=== PATIENT | female | born 1960 | race Caucasian/White ===

== ENCOUNTER → 2019-02-08 08:24 | Outpatient (CLI) | payer OTHER, SELFPAY ==
--- NOTE | 2019-02-08 | DI.US.S_ITS ---
PROCEDURE: US PELVIC COMPLETE INDICATIONS: PELVIC AND PERONEAL PAIN TECHNIQUE: Real-time scanning was performed of the pelvic organs, with image documentation. Additional endovaginal scanning was necessary due to incomplete visualization of the adnexal and endometrial structures by transabdominal scanning. COMPARISON: None. FINDINGS: Transabdominal scanning: Limited scanning through the kidneys shows no hydronephrosis. No pathologic free abdominal or pelvic fluid. Endovaginal scanning: Uterus: Uterus is normal in size at 8.0 x 4.8 x 5.6 cm. The endometrium measures 9 mm in combined thickness. Right anterior subserosal fibroid measuring 4.1 x 3.1 x 3.4 cm. Anterior subserosal fibroid measuring 1.7 x 1.3 x 1.1 cm Complex heterogeneous cervical mass, with internal vascularity measuring 2.5 x 1.7 x 2.0 cm. Ovaries: Ovaries are not well-visualized. IMPRESSION: Heterogeneous mass in the region of the cervix measuring up to 2.5 cm, nonspecific however concerning for cervical carcinoma. Recommend correlation with clinical exam findings. And if necessary, further evaluation with dedicated pelvis MRI could be performed. Multiple uterine fibroids Dictated by: Reginaldo Cisneros M.D. on 02/08/2019 at 12:17 Approved by: Reginaldo Cisneros M.D. on 02/08/2019 at 17:08
== END ==
PROVIDERS: Family Provider Family Medicine; PCP Family Medicine; Visit Provider Obstetrics & Gynecology
DX: R10.2 Pelvic and perineal pain (principal); D25.2 Subserosal leiomyoma of uterus; N88.9 Noninflammatory disorder of cervix uteri, unspecified
CPT/HCPCS: 76830; 76856

== ENCOUNTER → 2019-07-19 08:57 | Outpatient (CLI) | payer BC, SELFPAY ==
[2019-07-19 10:15] LABS: Add Manual Diff / Slide Review NO; Basophils Absolute Auto 0 /uL (0-100); Basophils Percent Auto 0.6 % (0-2); Eosinophils Absolute Auto 100 /uL (0-450); Eosinophils Percent Auto 2.9 % (2-4); Hematocrit 39.3 % (36-46); Hemoglobin 13.4 g/dL (12.0-16.0); Lymphocytes Absolute Auto 1300 /uL (1100-4500); Lymphocytes Percent Auto 28.9 % (25-40); Mean Corpuscular Hemoglobin 28.4 PG (26-34); Mean Corpuscular Volume 83.7 fL (80-100); Monocytes Absolute Auto 300 /uL (0-900); Monocytes Percent Auto 7.6 % (3-14); Neutrophils Absolute Auto 2700 /uL (1500-7000); Platelet Count 183 X10^3/uL (150-400); White Blood Cell Count 4.4 X10^3/uL (4.5-11.0)
[2019-07-19 10:18] LABS: Hemoglobin A1C% w Est Avg Glu 6.2 % (4.0-6.0)
[2019-07-19 11:08] LABS: BUN Creatinine Ratio 20.7 (6-22); Blood Urea Nitrogen 19 mg/dL (7-17); Calcium 9.4 mg/dL (8.4-10.2); Carbon Dioxide 23 mmol/L (22-32); Chloride 107 mmol/L (98-107); Estimated Glomerular Filt Rate > 60.0 mL/min (>60); Glucose 125 mg/dL (80-110); HEMOLYSIS < 15 (0-50); Potassium 4.5 mmol/L (3.4-5.1); Sodium 139 mmol/L (137-145)
== END ==
PROVIDERS: Family Provider Family Medicine; PCP Family Medicine; Referring Provider Orthopaedic Surgery Adult Reconstructive Orthopaedic Surgery; Visit Provider Orthopaedic Surgery Adult Reconstructive Orthopaedic Surgery
DX: Z01.818 Encounter for other preprocedural examination (principal); Z01.812 Encounter for preprocedural laboratory examination; R73.9 Hyperglycemia, unspecified
CPT/HCPCS: 36415; 80048; 83036; 85025; 93005; 93010

== ENCOUNTER 2019-12-16 15:00 | Outpatient (RCR) | payer BC, SELFPAY ==
--- NOTE | 2019-10-04 17:00 | PT.OIE ---
Current Diagnoses Unspecified urinary incontinence (10/04/19) Visit Care Team Role Provider Type Aaron Polanco MD Primary Care Provider Non-Staff Specialty: Medical Address: [address] [place] [address], [id number] Email: Mabel Lyman MD Attending Provider Physician Referring Provider Specialty: STENCIL MAKER Address: [address] [place] [address], [id number] Email: [email or web address] Physical Therapy Initial Evaluation PT-OP-A Visit Information Start: 09/16/19 08:17 Freq: Status: Active Protocol: Document 10/04/19 15:02 LRN (Rec: 10/04/19 16:47 LRN [id number]) Out-Patient Physical Therapy Visit Information Visit Information Visit Type Initial Evaluation Visit Start Time 15:02 Visit Stop Time 16:00 Total Visit Minutes 58 Visit Number 1 Evaluation Information Evaluation Date 10/04/19 Precautions Precautions Lower back pain with activity or repetitive, controlled blood pressure. R meniscus repair 07/25/2019. Sleep apnea. Unknown lesion on thyroid. PT-OP-B Current Condition Start: 09/16/19 08:17 Freq: Status: Active Protocol: Document 10/04/19 15:02 LRN (Rec: 10/04/19 16:47 LRN [id number]) Current Condition History of Current Condition Onset Date Dec 2018 pain with sex, 2014 urinary leakage. Current Complaints Pain during sexual intercourse , urinary leakage is secondary . History of Current Condition Post menopausal since 2017. Pain during sexual intercourse is the primary problem for being her vs urinary incontinence. Sex with intercourse started recently ( Dec 2018). Has had urinary leakage for 5 yrs with leakage when sneezing, vigorous activity, after prolonged sitting, if wait too long or sometimes has leakage with an urge. Wear a pad daily, light pad, changes mostly when going to bed, at worst changed 3x/day unless coughing or sneezing changes more. Has had 1 vaginal without complications. Prior Treatments and Tests Pelvic Ultrasound 01/2019, f/b MRI and determined to have fibroids in the uterus and adjacent to cervix. 2014 had precancerous cells removed from Cervix (LEAP). After MRI Biopsy of uterus due to bleeding. Cervical cells did not appear normal; therefore waiting to have PAP smear. Future Testing and Treatments Planned PAP today. Treatment Goals Patient/Caregiver Goals Correct pain with sex. Correct urine leakage with exercise. Prior Functional Status Baseline Function- ADL's Independent Baseline Function- Mobility Independent Baseline Function- Gait No limping with gait. 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 Baseline Function- Other No pain with sexual intercourse. Current Functional Impairments (Reported) Functional Limitations- ADL's Pain prevents sexual intercourse. Pain bruise feeling, penis hitting the top of the cervix. Functional Limitations- Mobility/Gait Normal gait. Difficulty with initial sit to stand. Functional Limitations- Work/School Working currently with spouse assist. Personal Factors Other Personal Factors That May Effect Recent R knee meniscus Therapy/Recovery arthoscopic surgery. Ongoing pelvic tests for possible cervical carcinoma. Uterine Fibroids. PT-OP-C Subjective Start: 09/16/19 08:17 Freq: Status: Active Protocol: Document 10/04/19 15:02 LRN (Rec: 10/04/19 16:47 LRN [id number]) Patient Questionnaires Pelvic Pain and Urgency/Frequency Patient Symptom Scale Pelvic Pain Score 16 OP-PT Pain Assessment Pain Assessment Grid Paper Pain Assessment Grid Completed Yes Location Vaginal region Pain Location Details Vaginal during sex, pain bruise feeling. Intensity 10 Scale Used Numeric (0 - 10) Comments Pain Comments Pain only with sexual intercourse. PT-OP-I Pelvic Floor Start: 09/16/19 08:17 Freq: Status: Active Protocol: Document 10/04/19 15:02 LRN (Rec: 10/04/19 16:47 LRN [id number]) Pelvic Floor Assessment Urine Leakage Cause Cough,Sneeze,Urge Leaks Per Day 1-3 Voiding Frequency 4x/day Nocturia 1x Pads Used In 24 Hours 1-3 Urine Pad Type Panty Liner Pelvic Clock Pelvic Clock 3-6 Tenderness Pelvic Clock 6-9 Tenderness Prolapse Cystocele Grade 2 Contraction Ability Voluntary Contraction Weak Voluntary Relaxation Weak Manual Muscle Testing Left 0 Manual Muscle Testing Right 0 Manual Muscle Testing Anterior 3 Manual Muscle Testing Posterior 3 Muscle Endurance (Seconds) 4 Number of Quick Contractions In 10 3 Seconds Comments Pelvic Floor Comments External tissues appear healthy. No pain with penetration. Pain only palpable in area of Obturator Internus on the left, and very mildly on the right. Greater pain was palpable with activation of the hip internal rotators. PT-OP-J Posture/Palpation/Skin Start: 09/16/19 08:17 Freq: Status: Active Protocol: Document 10/04/19 15:02 LRN (Rec: 10/04/19 16:47 LRN [id number]) Posture Evaluation Position Standing Head/C-Spine Posture Forward Head T-Spine Posture Flattened L-Spine Posture Decreased Lordosis Shoulder Posture (L) Elevated Pelvis Posture Posterior Tilted Weight Distribution Weight Shifted Left Hip Posture (R) Abducted Knee Posture (R) Genu Valgus PT-OP-K Range of Motion Start: 09/16/19 08:17 Freq: Status: Active Protocol: Document 10/04/19 15:02 LRN (Rec: 10/04/19 16:47 LRN [id number]) Hip Goniometric Range of Motion Hip Left Passive Testing Position Supine Straight Leg Raise 80 Abduction 25 Internal Rotation 28 External Rotation 60 Right Passive Testing Position Supine Straight Leg Raise 75 Abduction 20 Internal Rotation 30 External Rotation 75 Knee Goniometric Range of Motion Knee Left Knee ROM WFL Yes Flexion Active (degrees) 123 Extension Active (degrees) 3 Right Knee ROM WFL No Patient Position Supine Flexion Active (degrees) 107 Extension Active (degrees) 17 PT-OP-M Strength Start: 09/16/19 08:17 Freq: Status: Active Protocol: Document 10/04/19 15:02 LRN (Rec: 10/04/19 16:47 LRN [id number]) Hip Strength Hip Manual Muscle Testing Right Extension (S1) 3 Fair Internal Rotation 3 Fair Comments Strength is 5/5 except as indicated above. No pain with testing. Left External Rotation 4+ Good+ Internal Rotation 3 Fair Comments Hip pain with testing of hip rotators. PT-OP-Q Treatments Start: 09/16/19 08:17 Freq: Status: Active Protocol: Document 10/04/19 15:02 LRN (Rec: 10/04/19 16:47 LRN [id number]) Therapeutic Exercises Supine Exercises Piriformis stretch Supine Exercise Name L ankle crossed over R knee and R KTC Side left Reps/Minutes 2' Lateral hip stretch Supine Exercise Name Lateral hip stretch Side left Reps/Minutes 3' Comments Discussion and phys cuing for proper stretch Self-Care/Home Management Treatment Education Patient Education Home Exercise Program Other Education Pt educated in use and completion of bladder diary. Discussed use of 2 different diaries for tracking of bladder. Discussed results of evaluation and treatment Plan of Care. PT-OP-T Assessment and Plan Start: 09/16/19 08:17 Freq: Status: Active Protocol: Document 10/04/19 15:02 LRN (Rec: 10/04/19 16:47 LRN [id number]) Physical Therapy Assessment Rehab Potential Rehabilitation Potential Good Evaluation Complexity Number of Personal Factors/Comorbidities 1-2 Number of Body Systems Impaired 4 or More Clinical Presentation at Evaluation Evolving Impairments Impairments Activity Tolerance,Pain, Posture,ROM,Strength Goals Five Impairment Decreased awareness of performing a proper PF contraction. Short Term Goal (STG) Pt will be aware of the sensation of a proper PF contraction. Assisted Goal (LTG) Pt will be able to isolate a PF contraction without overuse of the outer abdominal muscles, hip AD?s muscles, and gluteal muscles. Four Impairment Pain with intercourse Short Term Goal (STG) Pt will be educated in proper PF care. Manager Home Goal (LTG) Pt will be able to tolerate intercourse without pain. Three Impairment Urinary leakage with a strong cough, sneeze or urge. Short Term Goal (STG) Improve PF strength per Long Hold to 7 sec's and Quick Flicks 6 reps prior to fatigue , h (Initially: Long Hold 4 secs, Quick Flicks 3 reps). Assisted Goal (LTG) Pt will have decreased complaints of urinary stress incontinent symptoms and will be able to maintain continence in the presence of a strong cough, sneeze or urge. LTG Duration 12/03/19 Two Impairment Dec'd hip mobility (PSLR 80L, 75R; IR 28L, 30R; ER 60L, 75R; AB 25L, 20R) Short Term Goal (STG) Pt will be independent with a HEP of hip stretches for hamstrings, hip AB's and IR/ER 's. Manager Home Goal (LTG) Pt will demonstrate improved hip IR, AB mobility and improved symmetry for PSLR & hip ER mobility. LTG Duration 12/03/19 One Impairment Lacks appropriate self care HEP. Manager Home Goal (LTG) Pt will be independent in a self care HEP for PF strengthening. LTG Duration 12/03/19 Assessment Summary Assessment Pt presents with primary concern of pain with intercourse. I was able to reproduce her pain with PF internal exam of palpation of her hip internal rotators with the left much worse than the right. Her pain appears to be from tight hip rotators, that may have a lumbar component, as well as involvement of the pudendal nerve. She has postural deviations that correspond to her presentation (extended sacrum). She has weakness of the L hip rotators as well as lack of mobility on the left. Her second condition of urinary incontinence appears to be due to weakness of her superficial and deep muscles. She substitutes with her abdominal muscles and hip muscles to improve her PF contraction. Education is needed for proper breathing techniques and discussion of clothing wear, and pelvic floor care. We will defer use of E-Stim due to concerns of possible cancerous cell growth but will utilized biofeedback for PF assessment and strengthening. The pt is expected to benefit from skilled physical therapy to improve her level of continence and return her to her prior level of function with painfree coitus. Physical Therapy Plan Frequency and Duration Frequency of Treatment 1x/Week Plan of Care Start Date 10/04/19 Plan of Care End Date 12/03/19 Therapeutic Interventions Therapeutic Interventions Coordination Training,Home Exercise Program,Joint Mobilizations,Manual Therapy, Neuromuscular Re-education, Patient/Caregiver Education, Self-Care/Home Management,Soft Tissue Mobilization, Therapeutic Activities, Therapeutic Exercises Modalities Biofeedback Next Visit Focus/Plan Next Note Type Treatment Note Next Visit Plan Review bladder diary and HEP instructed of Piriformis stretch. Issue HEP handout of hip rotator, hip AD, hamstring stretches and QS for full R knee extension. JMT for sacrum and L/S with lumbar ext/sacral flex ex's. Assess lumbar ROM and palpation for lumbar and sacral involvement. EMG biofeedback assessment. Address proper breathing technique, transfers, clothing wear, PF care & start PF strengthening of both Quick Flicks and Long holds in isolation of the Hip muscles and abdominals.
--- NOTE | 2019-10-11 16:10 | PT.OTN ---
Current Diagnoses Unspecified urinary incontinence (10/11/19) Physical Therapy Treatment Note PT-OP-A Visit Information Start: 09/16/19 08:17 Freq: Status: Active Protocol: Document 10/11/19 15:02 LRN (Rec: 10/11/19 16:08 LRN [id number]) Out-Patient Physical Therapy Visit Information Visit Information Visit Type Treatment Note Visit Start Time 15:02 Visit Stop Time 15:51 Total Visit Minutes 49 Visit Number 2 Evaluation Information Evaluation Date 10/04/19 Precautions Precautions Lower back pain with activity or repetitive, controlled blood pressure. R meniscus repair 07/25/2019. Sleep apnea. Unknown lesion on thyroid. PT-OP-B Current Condition Start: 09/16/19 08:17 Freq: Status: Active Protocol: Document 10/04/19 15:02 LRN (Rec: 10/04/19 16:47 LRN [id number]) Current Condition History of Current Condition Onset Date Dec 2018 pain with sex, 2014 urinary leakage. Current Complaints Pain during sexual intercourse , urinary leakage is secondary . History of Current Condition Post menopausal since 2017. Pain during sexual intercourse is the primary problem for being her vs urinary incontinence. Sex with intercourse started recently ( Dec 2018). Has had urinary leakage for 5 yrs with leakage when sneezing, vigorous activity, after prolonged sitting, if wait too long or sometimes has leakage with an urge. Wear a pad daily, light pad, changes mostly when going to bed, at worst changed 3x/day unless coughing or sneezing changes more. Has had 1 vaginal without complications. Prior Treatments and Tests Pelvic Ultrasound 01/2019, f/b MRI and determined to have fibroids in the uterus and adjacent to cervix. 2014 had precancerous cells removed from Cervix (LEAP). After MRI Biopsy of uterus due to bleeding. Cervical cells did not appear normal; therefore waiting to have PAP smear. Future Testing and Treatments Planned PAP today. Treatment Goals Patient/Caregiver Goals Correct pain with sex. Correct urine leakage with exercise. Prior Functional Status Baseline Function- ADL's Independent Baseline Function- Mobility Independent Baseline Function- Gait No limping with gait. 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 Baseline Function- Other No pain with sexual intercourse. Current Functional Impairments (Reported) Functional Limitations- ADL's Pain prevents sexual intercourse. Pain bruise feeling, penis hitting the top of the cervix. Functional Limitations- Mobility/Gait Normal gait. Difficulty with initial sit to stand. Functional Limitations- Work/School Working currently with spouse assist. Personal Factors Other Personal Factors That May Effect Recent R knee meniscus Therapy/Recovery arthoscopic surgery. Ongoing pelvic tests for possible cervical carcinoma. Uterine Fibroids. PT-OP-C Subjective Start: 09/16/19 08:17 Freq: Status: Active Protocol: Document 10/11/19 15:02 LRN (Rec: 10/11/19 16:08 LRN [id number]) OP-PT Subjective Patient Comments Patient Comments Did stretches and yoga stretches she does (Piriformis ), could do on left, but not at right. Somedays UI is bad sometimes not. Also had a massage to the low back. PT-OP-I Pelvic Floor Start: 09/16/19 08:17 Freq: Status: Active Protocol: Document 10/04/19 15:02 LRN (Rec: 10/04/19 16:47 LRN [id number]) Pelvic Floor Assessment Urine Leakage Cause Cough,Sneeze,Urge Leaks Per Day 1-3 Voiding Frequency 4x/day Nocturia 1x Pads Used In 24 Hours 1-3 Urine Pad Type Panty Liner Pelvic Clock Pelvic Clock 3-6 Tenderness Pelvic Clock 6-9 Tenderness Prolapse Cystocele Grade 2 Contraction Ability Voluntary Contraction Weak Voluntary Relaxation Weak Manual Muscle Testing Left 0 Manual Muscle Testing Right 0 Manual Muscle Testing Anterior 3 Manual Muscle Testing Posterior 3 Muscle Endurance (Seconds) 4 Number of Quick Contractions In 10 3 Seconds Comments Pelvic Floor Comments External tissues appear healthy. No pain with penetration. Pain only palpable in area of Obturator Internus on the left, and very mildly on the right. Greater pain was palpable with activation of the hip internal rotators. PT-OP-J Posture/Palpation/Skin Start: 09/16/19 08:17 Freq: Status: Active Protocol: Document 10/04/19 15:02 LRN (Rec: 10/04/19 16:47 LRN [id number]) Posture Evaluation Position Standing Head/C-Spine Posture Forward Head T-Spine Posture Flattened L-Spine Posture Decreased Lordosis Shoulder Posture (L) Elevated Pelvis Posture Posterior Tilted Weight Distribution Weight Shifted Left Hip Posture (R) Abducted Knee Posture (R) Genu Valgus PT-OP-K Range of Motion Start: 09/16/19 08:17 Freq: Status: Active Protocol: Document 10/11/19 15:02 LRN (Rec: 10/11/19 16:08 LRN [id number]) Hip Goniometric Range of Motion Hip Left Passive Testing Position Supine Internal Rotation 30 External Rotation 70 Right Passive Testing Position Supine Internal Rotation 30 External Rotation 75 PT-OP-M Strength Start: 09/16/19 08:17 Freq: Status: Active Protocol: Document 10/04/19 15:02 LRN (Rec: 10/04/19 16:47 LRN [id number]) Hip Strength Hip Manual Muscle Testing Right Extension (S1) 3 Fair Internal Rotation 3 Fair Comments Strength is 5/5 except as indicated above. No pain with testing. Left External Rotation 4+ Good+ Internal Rotation 3 Fair Comments Hip pain with testing of hip rotators. PT-OP-Q Treatments Start: 09/16/19 08:17 Freq: Status: Active Protocol: Document 10/11/19 15:02 LRN (Rec: 10/11/19 16:08 LRN [id number]) Therapeutic Exercises Supine Exercises QS Supine Exercise Name QS with towel roll under ankle and ankle relaxed Side right Equipment Used Towel roll under R ankle Reps/Minutes 3' Comments Pt not able to stretch into knee ext without DF R ankle. TA training Supine Exercise Name TA training Reps/Minutes 3' Comments Unable to obtain a proper TA even with phy & v cuing Hamstring/LE neural stretch Supine Exercise Name Hamstring/LE neural stretch Side bilateral Reps/Minutes 4' Comments Extra time for training of proper execution of ex Piriformis stretch Supine Exercise Name L ankle crossed over R knee and R KTC Side left Reps/Minutes 2' Lateral hip stretch Supine Exercise Name Lateral hip stretch Side left Reps/Minutes 3' Comments Discussion and phys cuing for proper stretch Standing Exercises 4 pt positioning Standing Exercise Name TA training in 4 pt type positioning Reps/Minutes 3' Comments Phys & v. cuing Manual Therapy Treatment Soft Tissue Mobilization Innominate Body Location Correcting R outflare & L inflare innominate Mobilization Type Myofascial Release Intensity/Depth Moderate Body Position Supine Comments R side attempted first without correction. L side corrected inflare. Upper Gluteal Body Location L Upper Gluteal from Sacral border to mid ilium Mobilization Type Strumming,Sustained Pressure Intensity/Depth Moderate Body Position Prone Joint Mobilizations Sacrum Joint Sacrum Direction MET Correcting a L rotated sacrum Body Position Prone Reps/Duration 10' Self-Care/Home Management Treatment Education Patient Education Home Exercise Program Other Education Issued bladder diary that pt forgot last session. Activities Self-Care/Home Management Activities Issued & reviewed HEP: Hip stretches (Piriformis and lateral hip), and hamstring/LE neural stretch. Discussed pt to try TA tightening in sidelie. PT-OP-T Assessment and Plan Start: 09/16/19 08:17 Freq: Status: Active Protocol: Document 10/11/19 15:02 LRN (Rec: 10/11/19 16:08 LRN [id number]) Physical Therapy Assessment Goals Five Impairment Decreased awareness of performing a proper PF contraction. Short Term Goal (STG) Pt will be aware of the sensation of a proper PF contraction. Animal Cruelty Investigation Supervisor Goal (LTG) Pt will be able to isolate a PF contraction without overuse of the outer abdominal muscles, hip AD?s muscles, and gluteal muscles. Four Impairment Pain with intercourse Short Term Goal (STG) Pt will be educated in proper PF care. Animal Cruelty Investigation Supervisor Goal (LTG) Pt will be able to tolerate intercourse without pain. Three Impairment Urinary leakage with a strong cough, sneeze or urge. Short Term Goal (STG) Improve PF strength per Long Hold to 7 sec's and Quick Flicks 6 reps prior to fatigue , h (Initially: Long Hold 4 secs, Quick Flicks 3 reps). Fpc Goal (LTG) Pt will have decreased complaints of urinary stress incontinent symptoms and will be able to maintain continence in the presence of a strong cough, sneeze or urge. LTG Duration 12/03/19 Two Impairment Dec'd hip mobility (PSLR 80L, 75R; IR 28L, 30R; ER 60L, 75R; AB 25L, 20R) Short Term Goal (STG) Pt will be independent with a HEP of hip stretches for hamstrings, hip AB's and IR/ER 's. Animal Cruelty Investigation Supervisor Goal (LTG) Pt will demonstrate improved hip IR, AB mobility and improved symmetry for PSLR & hip ER mobility. LTG Duration 12/03/19 One Impairment Lacks appropriate self care HEP. Fpc Goal (LTG) Pt will be independent in a self care HEP for PF strengthening. LTG Duration 12/03/19 Progress Towards Goals Progress Comments Improved L hip mobility for equal PROM for IR (30 deg's). ER is 5 deg's greater on the right (75 right, 70 left). Assessment Summary Assessment Improved L hip mobility, equal PROM for IR (30 deg's). ER is 5 deg's greater on the right (75 right, 70 left). Pt not able to perform a proper TA in supine, but demonstrates good tightening in 4 pt-like positioning. Was able to correct innominates flare, but Sacrum still appears to have a slight rottion left. Physical Therapy Plan Frequency and Duration Frequency of Treatment 1x/Week Plan of Care Start Date 10/04/19 Plan of Care End Date 12/03/19 Next Visit Focus/Plan Next Note Type Treatment Note Next Visit Plan Review bladder diary & recent HEP issued (LE neural stretch & TA tightening). Issue HEP handout of hip AD stretch, QS for full R knee extension, and TA contraction. JMT for sacrum and L/S with lumbar ext /sacral flex ex's. Assess lumbar ROM and palpation for lumbar and sacral involvement. EMG biofeedback assessment. Address proper breathing technique, transfers, clothing wear, PF care & start PF strengthening of both Quick Flicks and Long holds in isolation of the Hip muscles and abdominals.
--- NOTE | 2019-10-18 15:37 | PT-OP ANOTE ---
Returned pt call. 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 She states she will have to cancel next week for same reason. Pt has 2 visits scheduled, then will have to wait a few weeks before coming in again. She requests discussion of her POC at next visit to try and set her up on a self care program for the 2-3 weeks she will not be able to be seen due to no available appt times. Agreeable.
--- NOTE | 2019-10-25 16:54 | PT.OTN ---
Current Diagnoses Unspecified urinary incontinence (10/25/19) Physical Therapy Treatment Note PT-OP-A Visit Information Start: 09/16/19 08:17 Freq: Status: Active Protocol: Document 10/25/19 15:24 LRN (Rec: 10/25/19 16:53 LRN [id number]) Out-Patient Physical Therapy Visit Information Visit Information Visit Type Treatment Note Visit Start Time 15:24 Visit Stop Time 16:22 Total Visit Minutes 58 Visit Number 3 Evaluation Information Evaluation Date 10/04/19 Precautions Precautions Lower back pain with activity or repetitive, controlled blood pressure. R meniscus repair 07/25/2019. Sleep apnea. Unknown lesion on thyroid. PT-OP-B Current Condition Start: 09/16/19 08:17 Freq: Status: Active Protocol: Document 10/04/19 15:02 LRN (Rec: 10/04/19 16:47 LRN [id number]) Current Condition History of Current Condition Onset Date Dec 2018 pain with sex, 2014 urinary leakage. Current Complaints Pain during sexual intercourse , urinary leakage is secondary . History of Current Condition Post menopausal since 2017. Pain during sexual intercourse is the primary problem for being her vs urinary incontinence. Sex with intercourse started recently ( Dec 2018). Has had urinary leakage for 5 yrs with leakage when sneezing, vigorous activity, after prolonged sitting, if wait too long or sometimes has leakage with an urge. Wear a pad daily, light pad, changes mostly when going to bed, at worst changed 3x/day unless coughing or sneezing changes more. Has had 1 vaginal without complications. Prior Treatments and Tests Pelvic Ultrasound 01/2019, f/b MRI and determined to have fibroids in the uterus and adjacent to cervix. 2014 had precancerous cells removed from Cervix (LEAP). After MRI Biopsy of uterus due to bleeding. Cervical cells did not appear normal; therefore waiting to have PAP smear. Future Testing and Treatments Planned PAP today. Treatment Goals Patient/Caregiver Goals Correct pain with sex. Correct urine leakage with exercise. Prior Functional Status Baseline Function- ADL's Independent Baseline Function- Mobility Independent Baseline Function- Gait No limping with gait. 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 Baseline Function- Other No pain with sexual intercourse. Current Functional Impairments (Reported) Functional Limitations- ADL's Pain prevents sexual intercourse. Pain bruise feeling, penis hitting the top of the cervix. Functional Limitations- Mobility/Gait Normal gait. Difficulty with initial sit to stand. Functional Limitations- Work/School Working currently with spouse assist. Personal Factors Other Personal Factors That May Effect Recent R knee meniscus Therapy/Recovery arthoscopic surgery. Ongoing pelvic tests for possible cervical carcinoma. Uterine Fibroids. PT-OP-C Subjective Start: 09/16/19 08:17 Freq: Status: Active Protocol: Document 10/25/19 15:24 LRN (Rec: 10/25/19 16:53 LRN [id number]) OP-PT Subjective Patient Comments Patient Comments Nothing changed. Doing ex's and knee is sore. Brought the wrong papers, doesn't have the bladder diary. Water drinker and some days she drank more water. Noticed no pattern. Hasn't happened that when she wakes up she doesn't have to dugan to the bathroom. PT-OP-I Pelvic Floor Start: 09/16/19 08:17 Freq: Status: Active Protocol: Document 10/25/19 15:24 LRN (Rec: 10/25/19 16:53 LRN [id number]) Pelvic Floor Assessment SEMG (uV) Baseline 6.7 Quick Contraction 16.1 10 Second Contraction 17.1 Recruitment Pattern Fair Relaxation Poor/Slow Holding Fair Stability of Hold Good SEMG Stability of Rest Fair Comments Pelvic Floor Comments Quick Flicks (10 reps) Avg rest is 11.6 uV's. (20reps): Avg Work is 15.9uV's, Avg Rest is 11.3uV's. Long holds (10 reps): Avg rest is 8.7uV's (20 reps): Avg Work is 16.1 uV's, Avg Rest is 8.1 uV's. PT-OP-J Posture/Palpation/Skin Start: 09/16/19 08:17 Freq: Status: Active Protocol: Document 10/04/19 15:02 LRN (Rec: 10/04/19 16:47 LRN [id number]) Posture Evaluation Position Standing Head/C-Spine Posture Forward Head T-Spine Posture Flattened L-Spine Posture Decreased Lordosis Shoulder Posture (L) Elevated Pelvis Posture Posterior Tilted Weight Distribution Weight Shifted Left Hip Posture (R) Abducted Knee Posture (R) Genu Valgus PT-OP-K Range of Motion Start: 09/16/19 08:17 Freq: Status: Active Protocol: Document 10/25/19 15:24 LRN (Rec: 10/25/19 16:53 LRN [id number]) Hip Goniometric Range of Motion Hip Left Passive Testing Position Supine Abduction 25 Internal Rotation 35 External Rotation 70 Right Passive Testing Position Supine Abduction 20 Internal Rotation 40 External Rotation 75 PT-OP-M Strength Start: 09/16/19 08:17 Freq: Status: Active Protocol: Document 10/04/19 15:02 LRN (Rec: 10/04/19 16:47 LRN [id number]) Hip Strength Hip Manual Muscle Testing Right Extension (S1) 3 Fair Internal Rotation 3 Fair Comments Strength is 5/5 except as indicated above. No pain with testing. Left External Rotation 4+ Good+ Internal Rotation 3 Fair Comments Hip pain with testing of hip rotators. PT-OP-Q Treatments Start: 09/16/19 08:17 Freq: Status: Active Protocol: Document 10/25/19 15:24 LRN (Rec: 10/25/19 16:53 LRN [id number]) Therapeutic Exercises Supine Exercises Hip ER Supine Exercise Name Hip ER stretch pt wanted to review Comments Discussed less need to improve , ROM taken PF Long Holds Supine Exercise Name 10 sec hold/10 sec relaxation. Reps/Minutes 20x Comments Extra time for training to start PF Quick Flicks Supine Exercise Name 2 sec contraction/4 sec relaxation Reps/Minutes 20x Comments Extra time for training to start Hamstring/LE neural stretch Supine Exercise Name Hamstring/LE neural stretch Side bilateral Reps/Minutes 4' Comments Extra time for training of proper execution of ex Piriformis stretch Supine Exercise Name L ankle crossed over R knee and R KTC Side bilateral Reps/Minutes 5' Comments L > R, extra time to determine best positioning due to L knee pn. ROM taken Lateral hip stretch Supine Exercise Name Lateral hip stretch Side bilateral Reps/Minutes 4' Comments Discussion and phys cuing for proper stretch Sitting Exercises Hip AD stretch Sitting Exercise Name [place] and single hip AD stretch Side bilateral Reps/Minutes 8' Comments v. cuing to determine best possible stretch. Self-Care/Home Management Treatment Education Patient Education Home Exercise Program Other Education Discussed what pt recalled of her doing her Bladder diary and results of her HEP. Discussed results of EMG Biofeedback ex of Quick Flicks and Long holds and discussed reasons for high tone with brief discussion of future treatments to address high tone. Activities Self-Care/Home Management Activities HEP issued & reviewed: Hip AD stretching, 2 types of stretches. PT-OP-T Assessment and Plan Start: 09/16/19 08:17 Freq: Status: Active Protocol: Document 10/25/19 15:24 LRN (Rec: 10/25/19 16:53 LRN [id number]) Physical Therapy Assessment Goals Five Impairment Decreased awareness of performing a proper PF contraction. Short Term Goal (STG) Pt will be aware of the sensation of a proper PF contraction. Halfway Goal (LTG) Pt will be able to isolate a PF contraction without overuse of the outer abdominal muscles, hip AD?s muscles, and gluteal muscles. LTG Duration 10/25/19: MET GOAL Four Impairment Pain with intercourse Short Term Goal (STG) Pt will be educated in proper PF care. Halfway Goal (LTG) Pt will be able to tolerate intercourse without pain. Three Impairment Urinary leakage with a strong cough, sneeze or urge. Short Term Goal (STG) Improve PF strength per Long Hold to 7 sec's and Quick Flicks 6 reps prior to fatigue , h (Initially: Long Hold 4 secs, Quick Flicks 3 reps). Halfway Goal (LTG) Pt will have decreased complaints of urinary stress incontinent symptoms and will be able to maintain continence in the presence of a strong cough, sneeze or urge. LTG Duration 12/03/19 Two Impairment Dec'd hip mobility (PSLR 80L, 75R; IR 28L, 30R; ER 60L, 75R; AB 25L, 20R) Short Term Goal (STG) Pt will be independent with a HEP of hip stretches for hamstrings, hip AB's and IR/ER 's. STG Duration 10/25/19: MET GOAL Halfway Goal (LTG) Pt will demonstrate improved hip IR, AB mobility and improved symmetry for PSLR & hip ER mobility. LTG Duration 12/03/19 One Impairment Lacks appropriate self care HEP. Halfway Goal (LTG) Pt will be independent in a self care HEP for PF strengthening. LTG Duration 12/03/19 (10/25/19: Progressing) Progress Towards Goals Progress Comments Pt issued HEP to address decreased hip mobility. Pt demonstrates improved hip rotation mobility in deg's is: IR 35 L (was 28), 40 deg's R (was 30); ER shows no change at 60 L, 75 R. Assessment Summary Assessment Pt needed review of hamstring/ LE neural stretch to do properly. Per EMG biofeedback assessment the pt demonstrates high PF resting tone; therefore PF stretches will be needed and possible use of dilator. Pt still awaiting pap smear to assess for possible cervical carcinoma. Pt is going to be receiving PT for her R knee at [facility], therefore this will not be addressed here. Physical Therapy Plan Frequency and Duration Frequency of Treatment 1x/Week Plan of Care Start Date 10/04/19 Plan of Care End Date 12/03/19 Next Visit Focus/Plan Next Note Type Treatment Note Next Visit Plan If pt bring bladder diary in, review. Review TA tightening. Issue HEP handout of TA contraction. JMT for sacrum and L/S with lumbar ext/sacral flex ex's. Assess lumbar ROM and palpation for lumbar and sacral involvement. Address proper breathing technique, transfers, clothing wear, PF care & start PF relaxation training of both Quick Flicks and Long holds.
--- NOTE | 2019-11-01 16:41 | PT.OTN ---
Current Diagnoses Unspecified urinary incontinence (11/01/19) Physical Therapy Treatment Note PT-OP-A Visit Information Start: 09/16/19 08:17 Freq: Status: Active Protocol: Document 11/01/19 15:23 LRN (Rec: 11/01/19 16:34 LRN [id number]) Out-Patient Physical Therapy Visit Information Visit Information Visit Type Treatment Note Visit Start Time 15:23 Visit Stop Time 16:12 Total Visit Minutes 49 Visit Number 4 Evaluation Information Evaluation Date 10/04/19 Precautions Precautions Lower back pain with activity or repetitive, controlled blood pressure. R meniscus repair 07/25/2019. Sleep apnea. Unknown lesion on thyroid. PT-OP-B Current Condition Start: 09/16/19 08:17 Freq: Status: Active Protocol: Document 10/04/19 15:02 LRN (Rec: 10/04/19 16:47 LRN [id number]) Current Condition History of Current Condition Onset Date Dec 2018 pain with sex, 2014 urinary leakage. Current Complaints Pain during sexual intercourse , urinary leakage is secondary . History of Current Condition Post menopausal since 2017. Pain during sexual intercourse is the primary problem for being her vs urinary incontinence. Sex with intercourse started recently ( Dec 2018). Has had urinary leakage for 5 yrs with leakage when sneezing, vigorous activity, after prolonged sitting, if wait too long or sometimes has leakage with an urge. Wear a pad daily, light pad, changes mostly when going to bed, at worst changed 3x/day unless coughing or sneezing changes more. Has had 1 vaginal without complications. Prior Treatments and Tests Pelvic Ultrasound 01/2019, f/b MRI and determined to have fibroids in the uterus and adjacent to cervix. 2014 had precancerous cells removed from Cervix (LEAP). After MRI Biopsy of uterus due to bleeding. Cervical cells did not appear normal; therefore waiting to have PAP smear. Future Testing and Treatments Planned PAP today. Treatment Goals Patient/Caregiver Goals Correct pain with sex. Correct urine leakage with exercise. Prior Functional Status Baseline Function- ADL's Independent Baseline Function- Mobility Independent Baseline Function- Gait No limping with gait. 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 Baseline Function- Other No pain with sexual intercourse. Current Functional Impairments (Reported) Functional Limitations- ADL's Pain prevents sexual intercourse. Pain bruise feeling, penis hitting the top of the cervix. Functional Limitations- Mobility/Gait Normal gait. Difficulty with initial sit to stand. Functional Limitations- Work/School Working currently with spouse assist. Personal Factors Other Personal Factors That May Effect Recent R knee meniscus Therapy/Recovery arthoscopic surgery. Ongoing pelvic tests for possible cervical carcinoma. Uterine Fibroids. PT-OP-C Subjective Start: 09/16/19 08:17 Freq: Status: Active Protocol: Document 11/01/19 15:23 LRN (Rec: 11/01/19 16:34 LRN [id number]) OP-PT Subjective Patient Comments Patient Comments Forgot bladder diary. States she doesn't have urgency, but occasional leakage that is sudden and uncontrolled when heading to bathroom. PT-OP-I Pelvic Floor Start: 09/16/19 08:17 Freq: Status: Active Protocol: Document 10/25/19 15:24 LRN (Rec: 10/25/19 16:53 LRN [id number]) Pelvic Floor Assessment SEMG (uV) Baseline 6.7 Quick Contraction 16.1 10 Second Contraction 17.1 Recruitment Pattern Fair Relaxation Poor/Slow Holding Fair Stability of Hold Good SEMG Stability of Rest Fair Comments Pelvic Floor Comments Quick Flicks (10 reps) Avg rest is 11.6 uV's. (20reps): Avg Work is 15.9uV's, Avg Rest is 11.3uV's. Long holds (10 reps): Avg rest is 8.7uV's (20 reps): Avg Work is 16.1 uV's, Avg Rest is 8.1 uV's. PT-OP-J Posture/Palpation/Skin Start: 09/16/19 08:17 Freq: Status: Active Protocol: Document 10/04/19 15:02 LRN (Rec: 10/04/19 16:47 LRN [id number]) Posture Evaluation Position Standing Head/C-Spine Posture Forward Head T-Spine Posture Flattened L-Spine Posture Decreased Lordosis Shoulder Posture (L) Elevated Pelvis Posture Posterior Tilted Weight Distribution Weight Shifted Left Hip Posture (R) Abducted Knee Posture (R) Genu Valgus PT-OP-K Range of Motion Start: 09/16/19 08:17 Freq: Status: Active Protocol: Document 10/25/19 15:24 LRN (Rec: 10/25/19 16:53 LRN [id number]) Hip Goniometric Range of Motion Hip Left Passive Testing Position Supine Abduction 25 Internal Rotation 35 External Rotation 70 Right Passive Testing Position Supine Abduction 20 Internal Rotation 40 External Rotation 75 PT-OP-M Strength Start: 09/16/19 08:17 Freq: Status: Active Protocol: Document 10/04/19 15:02 LRN (Rec: 10/04/19 16:47 LRN [id number]) Hip Strength Hip Manual Muscle Testing Right Extension (S1) 3 Fair Internal Rotation 3 Fair Comments Strength is 5/5 except as indicated above. No pain with testing. Left External Rotation 4+ Good+ Internal Rotation 3 Fair Comments Hip pain with testing of hip rotators. PT-OP-Q Treatments Start: 09/16/19 08:17 Freq: Status: Active Protocol: Document 11/01/19 15:23 LRN (Rec: 11/01/19 16:34 LRN [id number]) Therapeutic Exercises Supine Exercises Deep Breathing Supine Exercise Name Deep Breathing Reps/Minutes 2' Comments Addressed restriction by clothing (top & bottom) Happy Baby Pose Supine Exercise Name Happy Baby Pose Reps/Minutes 3' TA training Supine Exercise Name TA training Reps/Minutes 21' Comments Training with COON, cough, laugh Prone Exercises YVES Prone Exercise Name YVES Reps/Minutes 10x Comments Performed with MWM assist for sacrum into flex. Manual Therapy Treatment Joint Mobilizations Sacrum Joint Sacrum Direction MET Correcting a L rotated sacrum Body Position Prone Reps/Duration 10' Neuro Re-Education Treatment Other Activities EMG Biofeedback Details Vaginal biofeedback for PF relaxation Reps/Duration 10' Comments Use of visual feedback, deep breathing and PF stretch. Self-Care/Home Management Treatment Education Other Education Educated, discussed, and issued handouts for general vulvar and general hygiene care. PT-OP-T Assessment and Plan Start: 09/16/19 08:17 Freq: Status: Active Protocol: Document 11/01/19 15:23 LRN (Rec: 11/01/19 16:34 LRN [id number]) Physical Therapy Assessment Goals Five Impairment Decreased awareness of performing a proper PF contraction. Short Term Goal (STG) Pt will be aware of the sensation of a proper PF contraction. Production Superintendent Goal (LTG) Pt will be able to isolate a PF contraction without overuse of the outer abdominal muscles, hip AD?s muscles, and gluteal muscles. LTG Duration 10/25/19: MET GOAL Four Impairment Pain with intercourse Short Term Goal (STG) Pt will be educated in proper PF care. STG Duration 11/01/19: MET GOAL Nursing Home Goal (LTG) Pt will be able to tolerate intercourse without pain. Three Impairment Urinary leakage with a strong cough, sneeze or urge. Short Term Goal (STG) Improve PF strength per Long Hold to 7 sec's and Quick Flicks 6 reps prior to fatigue , (Initially: Long Hold 4 secs, Quick Flicks 3 reps). Production Superintendent Goal (LTG) Pt will have decreased complaints of urinary stress incontinent symptoms and will be able to maintain continence in the presence of a strong cough, sneeze or urge. LTG Duration 12/03/19 Two Impairment Dec'd hip mobility (PSLR 80L, 75R; IR 28L, 30R; ER 60L, 75R; AB 25L, 20R) Short Term Goal (STG) Pt will be independent with a HEP of hip stretches for hamstrings, hip AB's and IR/ER 's. STG Duration 10/25/19: MET GOAL Production Superintendent Goal (LTG) Pt will demonstrate improved hip IR, AB mobility and improved symmetry for PSLR & hip ER mobility. LTG Duration 12/03/19 One Impairment Lacks appropriate self care HEP. Production Superintendent Goal (LTG) Pt will be independent in a self care HEP for PF strengthening. LTG Duration 12/03/19 (11/01/19: Progressing) Progress Towards Goals Progress Comments See below Assessment Summary Assessment Pt was able to gain greater awareness of what a TA contraction is by use of COON training. She does not automatically contract her TA; therefore needs further training. Pt showed much improved relaxation of her PF after stretching to perineum ( Happy Baby Pose and DKTC stretch). She was not able to relax her PF with visual feedback today. Physical Therapy Plan Frequency and Duration Frequency of Treatment 1x/Week Plan of Care Start Date 10/04/19 Plan of Care End Date 12/03/19 Next Visit Focus/Plan Next Note Type Treatment Note Next Visit Plan If pt brings in bladder diary, review. Review TA tightening and check if automatic. Issue HEP handout of TA contraction. JMT for sacrum as needed to correct (R rot), review L/S ext (YVES) w/sacral flex ex. Assess lumbar ROM. Address proper transfers and cont PF relaxation training with intro to dilator for TrP' s and stretching. Biofeedback for Quick Flicks and Long holds.
--- NOTE | 2019-11-25 15:26 | PT-OP ANOTE ---
Per phone the pt states she called and left voicemail of her cancellation.
--- NOTE | 2019-12-16 17:06 | PT.OTN ---
Current Diagnoses Unspecified urinary incontinence (12/16/19) Physical Therapy Treatment Note PT-OP-A Visit Information Start: 09/16/19 08:17 Freq: Status: Active Protocol: Document 12/16/19 15:07 LRN (Rec: 12/16/19 16:41 LRN [id number]) Out-Patient Physical Therapy Visit Information Visit Information Visit Type Treatment Note Visit Start Time 15:07 Visit Stop Time 15:57 Total Visit Minutes 50 Visit Number 5 Evaluation Information Evaluation Date 10/04/19 Precautions Precautions Lower back pain with activity or repetitive, controlled blood pressure. R meniscus repair 07/25/2019. Sleep apnea. Unknown lesion on thyroid. PT-OP-B Current Condition Start: 09/16/19 08:17 Freq: Status: Active Protocol: Document 10/04/19 15:02 LRN (Rec: 10/04/19 16:47 LRN [id number]) Current Condition History of Current Condition Onset Date Dec 2018 pain with sex, 2014 urinary leakage. Current Complaints Pain during sexual intercourse , urinary leakage is secondary . History of Current Condition Post menopausal since 2017. Pain during sexual intercourse is the primary problem for being her vs urinary incontinence. Sex with intercourse started recently ( Dec 2018). Has had urinary leakage for 5 yrs with leakage when sneezing, vigorous activity, after prolonged sitting, if wait too long or sometimes has leakage with an urge. Wear a pad daily, light pad, changes mostly when going to bed, at worst changed 3x/day unless coughing or sneezing changes more. Has had 1 vaginal without complications. Prior Treatments and Tests Pelvic Ultrasound 01/2019, f/b MRI and determined to have fibroids in the uterus and adjacent to cervix. 2014 had precancerous cells removed from Cervix (LEAP). After MRI Biopsy of uterus due to bleeding. Cervical cells did not appear normal; therefore waiting to have PAP smear. Future Testing and Treatments Planned PAP today. Treatment Goals Patient/Caregiver Goals Correct pain with sex. Correct urine leakage with exercise. Prior Functional Status Baseline Function- ADL's Independent Baseline Function- Mobility Independent Baseline Function- Gait No limping with gait. 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 Baseline Function- Other No pain with sexual intercourse. Current Functional Impairments (Reported) Functional Limitations- ADL's Pain prevents sexual intercourse. Pain bruise feeling, penis hitting the top of the cervix. Functional Limitations- Mobility/Gait Normal gait. Difficulty with initial sit to stand. Functional Limitations- Work/School Working currently with spouse assist. Personal Factors Other Personal Factors That May Effect Recent R knee meniscus Therapy/Recovery arthoscopic surgery. Ongoing pelvic tests for possible cervical carcinoma. Uterine Fibroids. PT-OP-C Subjective Start: 09/16/19 08:17 Freq: Status: Active Protocol: Document 12/16/19 15:07 LRN (Rec: 12/16/19 16:41 LRN [id number]) OP-PT Subjective Patient Comments Patient Comments Still painful. Now instead of the back of the vaginal sore she feels with intercourse he is hitting her cervix. Having tearing of vaginal wall. 2013 did leap due to precancerous cells, and testing (PAP smears every 3 months) (at that time had pain with intercourse and related pain due to HPV), showed no canceorus cells. HPV testing recently (just before starting therapy) was negative, said she doesn't have it. Now no concern of cancerous cells, but has fibroids (7-8), and several are near cervix and she thinks it is the reason for the pain but the OBG doens't think that is the reason. PT-OP-I Pelvic Floor Start: 09/16/19 08:17 Freq: Status: Active Protocol: Document 12/16/19 15:07 LRN (Rec: 12/16/19 16:41 LRN [id number]) Pelvic Floor Assessment Comments Pelvic Floor Comments Tender at superficial level at the left lateral wall. Pt had poor coordination during a PF contration, but improved with training using 30% effort. Held complete PF assessment due to recent reported vaginal tearing with intercourse. PT-OP-J Posture/Palpation/Skin Start: 09/16/19 08:17 Freq: Status: Active Protocol: Document 10/04/19 15:02 LRN (Rec: 10/04/19 16:47 LRN [id number]) Posture Evaluation Position Standing Head/C-Spine Posture Forward Head T-Spine Posture Flattened L-Spine Posture Decreased Lordosis Shoulder Posture (L) Elevated Pelvis Posture Posterior Tilted Weight Distribution Weight Shifted Left Hip Posture (R) Abducted Knee Posture (R) Genu Valgus PT-OP-K Range of Motion Start: 09/16/19 08:17 Freq: Status: Active Protocol: Document 10/25/19 15:24 LRN (Rec: 10/25/19 16:53 LRN [id number]) Hip Goniometric Range of Motion Hip Left Passive Testing Position Supine Abduction 25 Internal Rotation 35 External Rotation 70 Right Passive Testing Position Supine Abduction 20 Internal Rotation 40 External Rotation 75 PT-OP-M Strength Start: 09/16/19 08:17 Freq: Status: Active Protocol: Document 10/04/19 15:02 LRN (Rec: 10/04/19 16:47 LRN [id number]) Hip Strength Hip Manual Muscle Testing Right Extension (S1) 3 Fair Internal Rotation 3 Fair Comments Strength is 5/5 except as indicated above. No pain with testing. Left External Rotation 4+ Good+ Internal Rotation 3 Fair Comments Hip pain with testing of hip rotators. PT-OP-Q Treatments Start: 09/16/19 08:17 Freq: Status: Active Protocol: Document 12/16/19 15:07 LRN (Rec: 12/16/19 16:41 LRN [id number]) Therapeutic Exercises Supine Exercises PF Long Holds Supine Exercise Name PF awareness training. Comments PF long hold contraction with exhale & 30% contraction Self-Care/Home Management Treatment Education Other Education Discussed pt's bladder diary that she could recall and made suggestive changes to water loading earlier (before 5p) and less in the evening. Discussed urinary leakage times and amounts with teaching of bladder retraining for 1st in AM and when needed . Discussed routines and how that can effect her need to urinate. 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 Discussed at length ways to decrease pain with intercourse, including positioning (hips high) and amount of entry by partner. Lightly discussed lubrication. Discussed/ educated pt in PF anatomy with use PF model. Discussed continuation of therapy and plan of care. Activities Self-Care/Home Management Activities Issued, discussed and educated pt in Delay Technique with discussion of how to use on waking in morning. PT-OP-T Assessment and Plan Start: 09/16/19 08:17 Freq: Status: Active Protocol: Document 12/16/19 15:07 LRN (Rec: 12/16/19 16:41 LRN [id number]) Physical Therapy Assessment Goals Five Impairment Decreased awareness of performing a proper PF contraction. Short Term Goal (STG) Pt will be aware of the sensation of a proper PF contraction. STG Duration 02/20/20 Skilled Nursing Goal (LTG) Pt will be able to isolate a PF contraction without overuse of the outer abdominal muscles, hip AD?s muscles, and gluteal muscles. LTG Duration 10/25/19: MET GOAL Four Impairment Pain with intercourse Short Term Goal (STG) Pt will be educated in proper PF care. STG Duration 11/01/19: MET GOAL Skilled Nursing Goal (LTG) Pt will be able to tolerate intercourse without pain. LTG Duration 02/20/20 Three Impairment Urinary leakage with a strong cough, sneeze or urge. Short Term Goal (STG) Improve PF strength per Long Hold to 7 sec's and Quick Flicks 6 reps prior to fatigue , (Initially: Long Hold 4 secs, Quick Flicks 3 reps). STG Duration 01/31/20 Skilled Nursing Goal (LTG) Pt will have decreased complaints of urinary stress incontinent symptoms and will be able to maintain continence in the presence of a strong cough, sneeze or urge. LTG Duration 02/20/20 Two Impairment Dec'd hip mobility (PSLR 80L, 75R; IR 28L, 30R; ER 60L, 75R; AB 25L, 20R) Short Term Goal (STG) Pt will be independent with a HEP of hip stretches for hamstrings, hip AB's and IR/ER 's. STG Duration 10/25/19: MET GOAL Skilled Nursing Goal (LTG) Pt will demonstrate improved hip IR, AB mobility and improved symmetry for PSLR & hip ER mobility. LTG Duration 02/20/20 One Impairment Lacks appropriate self care HEP. Optics Engineer Goal (LTG) Pt will be independent in a self care HEP for PF strengthening. LTG Duration 02/20/20 (11/01/19: Progressing) Assessment Summary Assessment Pt returns after a 45 day delay for various reasons. The pt has attended sporadically 5 visits ( including evaluation); therefore progression has been poor. Today she presents with redness in her Labia Minora and tenderness on the left side. Assessment of her deeper PF muscles was held due to pt report of vaginal bleeding from intercourse 2 nights ago. Palpation of superficial PF muscles ( insertion to 1st finger joint) presented with no palpable superficial PF contraction felt. With palpation she had tenderness in the left lateral wall of the superficial PF and labia minora. Her PF contraction was uncoordinated and contraction caused inserted superficial finger in the vaginal canal to be pushed out vs pulled in. Her PF tissued are red and angry in color and according to pt her tissues are fagile and tearing with intercourse. Pt would benefit from a vaginal cream to improve PF and also labial minora health before progressing with her therapy, using manual therapy and self PF stretching, if needed, and biofeedback training can be done. Physical Therapy Plan Frequency and Duration Frequency of Treatment 1x/Week Plan of Care Start Date 12/16/19 Plan of Care End Date 02/20/20 Next Visit Focus/Plan Next Note Type Treatment Note Next Visit Plan Pt to return after seeing Dr. Lyman for treatment to improve PF skin health. Hold for now EStim due to history of possible cancerous tissues and discuss with MD. Recheck PF health and assess for need of stretching PF vs improving skin health for decreased pain with intercourse. Assess for proper coordination of PF contraction and teach proper contraction with progressively more than 30% effort. Assess if pt needs dilator for PF stretching or if improved skin health has improved tolerance to intercourse. Teach awareness of PF relaxation after contraction and intro to dilator for TrP's and stretching, if needed. Assess EMG biofeedback for PF tightness and proper PF contraction. Biofeedback for Quick Flicks and Long holds ( also focus on awareness of relaxation between contraction ). If pt brings in bladder diary, review and discuss. Review TA tightening and check if automatic. Issue HEP handout of TA contraction when proper coordination is achieved. For orthopedic dysfunction: JMT for sacrum as needed to correct (R rot), review L/S ext (YVES) w/sacral flex ex. Assess lumbar ROM. Address proper transfers.
--- NOTE | 2019-12-16 17:07 | PT.OPPOC ---
Physical, Occupational & Speech Therapy At [facility] Current Diagnoses Unspecified urinary incontinence (12/16/19) Visit Care Team Role Provider Type Aaron Polanco MD Primary Care Provider Non-Staff Specialty: Medical Address: [address] [place] [address], [phone] Email: Mabel Lyman MD Attending Provider Physician Referring Provider Specialty: SOFTWARE SYSTEMS ANALYST Address: [address] [place] [address], [id number] Email: [email or web address] Plan Of Care PT-OP-T Assessment and Plan Start: 09/16/19 08:17 Freq: Status: Active Protocol: Document 12/16/19 15:07 LRN (Rec: 12/16/19 16:41 LRN [id number]) Physical Therapy Assessment Goals Five Impairment Decreased awareness of performing a proper PF contraction. Short Term Goal (STG) Pt will be aware of the sensation of a proper PF contraction. STG Duration 02/20/20 Zipper Setter Goal (LTG) Pt will be able to isolate a PF contraction without overuse of the outer abdominal muscles, hip AD?s muscles, and gluteal muscles. LTG Duration 10/25/19: MET GOAL Four Impairment Pain with intercourse Short Term Goal (STG) Pt will be educated in proper PF care. STG Duration 11/01/19: MET GOAL Zipper Setter Goal (LTG) Pt will be able to tolerate intercourse without pain. LTG Duration 02/20/20 Three Impairment Urinary leakage with a strong cough, sneeze or urge. Short Term Goal (STG) Improve PF strength per Long Hold to 7 sec's and Quick Flicks 6 reps prior to fatigue , (Initially: Long Hold 4 secs, Quick Flicks 3 reps). STG Duration 01/31/20 Fpc Goal (LTG) Pt will have decreased complaints of urinary stress incontinent symptoms and will be able to maintain continence in the presence of a strong cough, sneeze or urge. LTG Duration 02/20/20 Two Impairment Dec'd hip mobility (PSLR 80L, 75R; IR 28L, 30R; ER 60L, 75R; AB 25L, 20R) Short Term Goal (STG) Pt will be independent with a HEP of hip stretches for hamstrings, hip AB's and IR/ER 's. STG Duration 10/25/19: MET GOAL Fpc Goal (LTG) Pt will demonstrate improved hip IR, AB mobility and improved symmetry for PSLR & hip ER mobility. LTG Duration 02/20/20 One Impairment Lacks appropriate self care HEP. Zipper Setter Goal (LTG) Pt will be independent in a self care HEP for PF strengthening. LTG Duration 02/20/20 (11/01/19: Progressing) Assessment Summary Assessment Pt returns after a 45 day delay for various reasons. The pt has attended sporadically 5 visits ( including evaluation); therefore progression has been poor. Today she presents with redness in her Labia Minora and tenderness on the left side. Assessment of her deeper PF muscles was held due to pt report of vaginal bleeding from intercourse 2 nights ago. Palpation of superficial PF muscles ( insertion to 1st finger joint) presented with no palpable superficial PF contraction felt. With palpation she had tenderness in the left lateral wall of the superficial PF and labia minora. Her PF contraction was uncoordinated and contraction caused inserted superficial finger in the vaginal canal to be pushed out vs pulled in. Her PF tissued are red and angry in color and according to pt her tissues are fagile and tearing with intercourse. Pt would benefit from a vaginal cream to improve PF and also labial minora health before progressing with her therapy, using manual therapy and self PF stretching, if needed, and biofeedback trainin can be done. Physical Therapy Plan Frequency and Duration Frequency of Treatment 1x/Week Plan of Care Start Date 12/16/19 Plan of Care End Date 02/20/20 Next Visit Focus/Plan Next Note Type Treatment Note Next Visit Plan Pt to return after seeing Dr. Lyman for treatment to improve PF skin health. Hold for now EStim due to history of possible cancerous tissues and discuss with MD. Recheck PF health and assess for need of stretching PF vs improving skin health for decreased pain with intercourse. Assess for proper coordination of PF contraction and teach proper contraction with progressively more than 30% effort. Assess if pt needs dilator for PF stretching or if improved skin health has improved tolerance to intercourse. Teach awareness of PF relaxation after contraction and intro to dilator for TrP's and stretching, if needed. Assess EMG biofeedback for PF tightness and proper PF contraction. Biofeedback for Quick Flicks and Long holds ( also focus on awareness of relaxation between contraction ). If pt brings in bladder diary, review and discuss. Review TA tightening and check if automatic. Issue HEP handout of TA contraction when proper coordination is achieved. For orthopedic dysfunction: JMT for sacrum as needed to correct (R rot), review L/S ext (YVES) w/sacral flex ex. Assess lumbar ROM. Address proper transfers. Plan of Care Dates Plan of Care Start Date 12/16/19 Plan of Care End Date 02/20/20 Electronically Signed by: Sravanthi Linton, PT 12/16/19 0975 Please Sign and Return: I have reviewed this Plan of Care and certify that the skilled therapy services above are required to meet the patient?s needs. Physician Signature Date Printed Name and Credentials Clinical Instructor Signature Printed Name and Credentials
--- NOTE | 2020-02-17 15:56 | PT.OPDS ---
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 Current Complaints Pain during sexual intercourse , urinary leakage is secondary . History of Current Condition Post menopausal since 2017. Pain during sexual intercourse is the primary problem for being her vs urinary incontinence. Sex with intercourse started recently ( Dec 2018). Has had urinary leakage for 5 yrs with leakage when sneezing, vigorous activity, after prolonged sitting, if wait too long or sometimes has leakage with an urge. Wear a pad daily, light pad, changes mostly when going to bed, at worst changed 3x/day unless coughing or sneezing changes more. Has had 1 vaginal without complications. Prior Treatments and Tests Pelvic Ultrasound 01/2019, f/b MRI and determined to have fibroids in the uterus and adjacent to cervix. 2014 had precancerous cells removed from Cervix (LEAP). After MRI Biopsy of uterus due to bleeding. Cervical cells did not appear normal; therefore waiting to have PAP smear. Future Testing and Treatments Planned PAP today. Treatment Goals Patient/Caregiver Goals Correct pain with sex. Correct urine leakage with exercise. Prior Functional Status Baseline Function- ADL's Independent Baseline Function- Mobility Independent Baseline Function- Gait No limping with gait. 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 Baseline Function- Other No pain with sexual intercourse. Current Functional Impairments (Reported) Functional Limitations- ADL's Pain prevents sexual intercourse. Pain bruise feeling, penis hitting the top of the cervix. Functional Limitations- Mobility/Gait Normal gait. Difficulty with initial sit to stand. Functional Limitations- Work/School Working currently with spouse assist. Personal Factors Other Personal Factors That May Effect Recent R knee meniscus Therapy/Recovery arthoscopic surgery. Ongoing pelvic tests for possible cervical carcinoma. Uterine Fibroids. PT-OP-C Subjective Start: 09/16/19 08:17 Freq: Status: Active Protocol: Document 02/17/20 15:39 LRN (Rec: 02/17/20 15:56 LRN [id number]) OP-PT Subjective Patient Comments Patient Comments Per telephone conversation the pt states she cancelled today 's appointment and requested no further therapy until after the new year. States she had an estrogen ring implanted 1 week ago and was to told to give it 3 months time to be effective. Pt agreeable to discharge from therapy at this time and will assess her need for therapy after 3 months on the estrogen ring. She understands that she will need a new referral to return to therapy if further therapy is needed after wearing the estrogen ring. Pt states she has improved overall and has minor leaks or none at all in the presence of a strong urge and , cough or sneeze. PT-OP-I Pelvic Floor Start: 09/16/19 08:17 Freq: Status: Active Protocol: Document 12/16/19 15:07 LRN (Rec: 12/16/19 16:41 LRN [id number]) Pelvic Floor Assessment Comments Pelvic Floor Comments Tender at superficial level at the left lateral wall. Pt had poor coordination during a PF contration, but improved with training using 30% effort. Held complete PF assessment due to recent reported vaginal tearing with intercourse. PT-OP-J Posture/Palpation/Skin Start: 09/16/19 08:17 Freq: Status: Active Protocol: Document 10/04/19 15:02 LRN (Rec: 10/04/19 16:47 LRN [id number]) Posture Evaluation Position Standing Head/C-Spine Posture Forward Head T-Spine Posture Flattened L-Spine Posture Decreased Lordosis Shoulder Posture (L) Elevated Pelvis Posture Posterior Tilted Weight Distribution Weight Shifted Left Hip Posture (R) Abducted Knee Posture (R) Genu Valgus PT-OP-K Range of Motion Start: 09/16/19 08:17 Freq: Status: Active Protocol: Document 09/04/20 15:24 LRN (Rec: 10/25/19 16:53 LRN [id number]) Hip Goniometric Range of Motion Hip Left Passive Testing Position Supine Abduction 25 Internal Rotation 35 External Rotation 70 Right Passive Testing Position Supine Abduction 20 Internal Rotation 40 External Rotation 75 PT-OP-M Strength Start: 09/16/19 08:17 Freq: Status: Active Protocol: Document 10/04/19 15:02 LRN (Rec: 10/04/19 16:47 LRN [id number]) Hip Strength Hip Manual Muscle Testing Right Extension (S1) 3 Fair Internal Rotation 3 Fair Comments Strength is 5/5 except as indicated above. No pain with testing. Left External Rotation 4+ Good+ Internal Rotation 3 Fair Comments Hip pain with testing of hip rotators. PT-OP-T Assessment and Plan Start: 09/16/19 08:17 Freq: Status: Active Protocol: Document 02/17/20 15:39 LRN (Rec: 02/17/20 15:56 LRN [id number]) Physical Therapy Assessment Goals Five Impairment Decreased awareness of performing a proper PF contraction. Short Term Goal (STG) Pt will be aware of the sensation of a proper PF contraction. STG Duration 02/20/20 (02/17/20: Pt unavailable for final assessment) Resort Keeper Goal (LTG) Pt will be able to isolate a PF contraction without overuse of the outer abdominal muscles, hip AD?s muscles, and gluteal muscles. LTG Duration 10/25/19: MET GOAL Four Impairment Pain with intercourse Short Term Goal (STG) Pt will be educated in proper PF care. STG Duration 11/01/19: MET GOAL Resort Keeper Goal (LTG) Pt will be able to tolerate intercourse without pain. LTG Duration 02/20/20 (02/17/20: Pt unavailable for final assessment) Three Impairment Urinary leakage with a strong cough, sneeze or urge. Short Term Goal (STG) Improve PF strength per Long Hold to 7 sec's and Quick Flicks 6 reps prior to fatigue , (Initially: Long Hold 4 secs, Quick Flicks 3 reps). STG Duration 01/31/20 (02/17/20: Pt unavailable for final assessment) Resort Keeper Goal (LTG) Pt will have decreased complaints of urinary stress incontinent symptoms and will be able to maintain continence in the presence of a strong cough, sneeze or urge. (02/17/20: Per phone conversation pt reports minor urinary leakage in the presence of a strong cough, sneeze or urge and sometimes no leakage) LTG Duration 02/20/20 (02/17/20: Improved) Two Impairment Dec'd hip mobility (PSLR 80L, 75R; IR 28L, 30R; ER 60L, 75R; AB 25L, 20R) Short Term Goal (STG) Pt will be independent with a HEP of hip stretches for hamstrings, hip AB's and IR/ER 's. STG Duration 10/25/19: MET GOAL Fpc Goal (LTG) Pt will demonstrate improved hip IR, AB mobility and improved symmetry for PSLR & hip ER mobility. LTG Duration 02/20/20 (02/17/20: Pt unavailable for final assessment) One Impairment Lacks appropriate self care HEP. Resort Keeper Goal (LTG) Pt will be independent in a self care HEP for PF strengthening. (Pt has an initial HEP of Kegel and hip stretches, pt has not been progressed due to lack of attendance) LTG Duration 02/20/20 (02/17/20: Partially met) Assessment Summary Assessment Per telephone conversation the pt notes improvement with less leakage with a strong urge, cough or sneeze. She is having minor leaks and today she reported her pad has been dry. The pt has improved in her ability to delay urination to avoid leaking, and is independent on a HEP of PF strengthening and hip mobility stretches to improve symmetry of hip motion. Pt is agreeable to discharge to her HEP due to her lack of attendance, and understands she may return to therapy with a new referral if needed. Physical Therapy Plan Discharge Physical Therapy Discharge Comments Pt was initially seen on and has been seen for 4 visits since that time with her last visit on 12/16/19. She states she can't be seen until after the new year and has just had an estrogen ring placed and was told it would take 3 months to be effective. The pt is being discharged from therapy due to lack of attendance and is agreeable to discharge. She understands that if further therapy is needed in 3 months she will seek a new referral to return to PT.
== END 2020-02-19 12:44 ==
LOC: PHYS 15:00
PROVIDERS: PCP Family Medicine; Referring Provider Specialist; Visit Provider Specialist
DX: R32 Unspecified urinary incontinence (principal)
CPT/HCPCS: 97110; 97112; 97140; 97162; 97535

== ENCOUNTER → 2020-05-28 15:36 | Outpatient (CLI) | payer BC, SELFPAY ==
[2020-05-28] MEDS: COVID-19 VACC, Ad26(JANSSEN)/PF 0.5 ML IM (15:48)
== END ==
PROVIDERS: PCP Family Medicine; Visit Provider Internal Medicine
DX: Z23 Encounter for immunization (principal)
CPT/HCPCS: 0031A; 91303

== ENCOUNTER → 2020-09-17 08:00 | Outpatient (CLI) | payer BC, SELFPAY ==
--- NOTE | 2020-09-17 08:05 | DI.US.S_ITS ---
PROCEDURE: US PELVIC COMPLETE INDICATIONS: PMB TECHNIQUE: Real-time scanning was performed of the pelvic organs, with image documentation. Additional endovaginal scanning was necessary due to incomplete visualization of the adnexal and endometrial structures by transabdominal scanning. COMPARISON: [facility], , US PELVIC COMPLETE, 02/08/2019, 9:06. FINDINGS: Uterus: Uterus is normal in size at 8.2 x 5.3 x 5.2 cm. The endometrium measures 15.4 mm in combined thickness. Endometrium is diffusely heterogeneous. Presumed lower uterine segment/cervix intramural fibroid again identified measuring 5.6 x 3.2 x 4.7 cm slightly increased in size from prior exam. 1.7 cm subserosal and 1.6 cm intramural fibroids also are noted. Complex mass within the cervix again identified similar to prior examination measuring 2.0 x 1.4 x 0.9 cm. Mild internal flow. Ovaries: Left ovary is not seen. Simple cyst associated with the right ovary measuring 2.0 cm. Other: No pathologic free abdominal or pelvic fluid. IMPRESSION: 1. Multiple uterine fibroids, largest of which is within the lower uterine segment and cervix which appears slightly increased in size compared to prior examination. If indicated, pre and post contrast gynecologic protocol MRI could be performed for further assessment. 2. No significant interval change in appearance or alignment of complex cervical mass with mild vascularity. Underlying neoplasm cannot be excluded. This mass also could be further evaluated with MRI. Dictated by: Elias VELAZCO Interpreted: Emmanuel Khanna MD on 09/17/2020 at 13:28 Transcribed by: BALDEMAR on 09/17/2020 at 13:35 Approved by: Emmanuel Khanna M.D. on 09/17/2020 at 14:46
== END ==
PROVIDERS: PCP Family Medicine; Referring Provider Specialist; Visit Provider Specialist
DX: N95.0 Postmenopausal bleeding (principal); D25.1 Intramural leiomyoma of uterus; D25.2 Subserosal leiomyoma of uterus; N88.9 Noninflammatory disorder of cervix uteri, unspecified
CPT/HCPCS: 76830; 76856

== ENCOUNTER → 2020-11-09 13:51 | Outpatient (CLI) | payer BC, SELFPAY ==
[2020-11-09 15:34] LABS: COVID19 -Nasal RAPID Negative (Negative)
== END ==
PROVIDERS: PCP Family Medicine; Visit Provider Nurse Practitioner Family
DX: Z20.822 Contact with and (suspected) exposure to COVID-19 (principal); R05 Cough; R09.89 Other specified symptoms and signs involving the circulatory and respiratory systems; R50.9 Fever, unspecified
CPT/HCPCS: 87635